=== PATIENT | male | born 1955 | race African-American/Black ===

== ENCOUNTER → 2019-10-04 | Day surgery (SDC) | payer MEDICARE, OTHER ==
--- NOTE | 2019-10-01 12:44 | Diagnostic Imaging Report ---
EXAMINATION: CHEST 2 VIEWS INDICATION: Pre-operative COMPARISON: None FINDINGS: LINES/TUBES:Right IJ central venous catheters terminate at the SVC and superior cavoatrial junction. LUNGS:The lungs are well-inflated. No focal consolidation or pulmonary edema. PLEURA:No pleural effusion or pneumothorax. MEDIASTINUM:The cardiomediastinal silhouette appears normal in size and shape. BONES/SOFT TISSUES:No acute osseous injury. ABDOMEN:No free air under the diaphragm. IMPRESSION: No focal pneumonia or pulmonary edema. Signed by: Lida Villavicencio MD on 10/01/2019 12:41 PM
[~2019-10-04] MED LIST: ACIDOPHILUS1 EAC1 PO; ATORVASTATIN CA20 MG PO; B&O 60MG R/S 60 MG SUPP PR ONE; CARVEDILOL12.5 MG PO; CEFDINIR300 MG PO; CEFTRIAXONE SOD 1 GM/NS 50 ML 50 ML IV ONE; ETOMIDATE 2 MG/ML 10 ML INJ IV ONE; FAMOTIDINE20 MG PO; FENTANYL CITRATE/PF 100MCG/2 ML INJ ONE; FERROUS SULFAT325 MG PO; FINASTERIDE1 MG PO; FLOMAX0.4 MG PO; HYDRALAZINE HCL25 MG PO; IOPAMIDOL 300MG/ML 50ML INFUS..BTL IV ONE; LIDOCAINE HCL 2% LOCAL INJ 5 ML SDV VIAL INJ ONE; MIDAZOLAM HCL 2 MG/2 ML VIAL ONE; NORVASC10 MG PO; ONDANSETRON HCL INJ 2MG/ML 2ML 2 MG/ML VIAL ONE; SEVOFLURANE INHAL SOLN 250 ML PEN BTL ONE
[2019-10-04 09:32] LABS: BASOPHILS % 0.3 % (0.0-1.0); EOSINOPHILS # (AUTO) 0.2 (0.0-0.4); EOSINOPHILS % 2.4 % (0.0-6.0); HEMATOCRIT 36.2 % (38.2-49.6); HEMOGLOBIN 11.4 g/dL (14.0-18.0); LYMPHOCYTES % 15.4 % (18.0-39.1); MEAN CORPUSCULAR HEMOGLOBIN 28.1 pg (28-32); MEAN CORPUSCULAR HGB CONC 31.5 g/dL (31-35); MEAN CORPUSCULAR VOLUME 89.2 fL (81-99); MONOCYTES # (AUTO) 0.6 (0.2-0.8); MONOCYTES % 8.1 % (4.4-11.3); NEUTROPHILS % 73.5 % (38.7-80.0); PLATELET COUNT 255 x10e3/uL (140-360); RED BLOOD COUNT 4.06 x10e6/uL (4.3-5.7); RED CELL DISTRIBUTION WIDTH 17.9 % (11.7-14.4)
[2019-10-04 10:27] LABS: ANION GAP 17.9 mmol/L (8-16); CALCIUM 9.2 mg/dL (8.4-10.2); CREATININE, SERUM 5.66 mg/dL (0.72-1.25); POTASSIUM 3.9 mmol/L (3.5-5.1)
[2019-10-04 17:05] VITALS: BP 149/87
--- NOTE | 2019-11-11 04:16 | Operative Report ---
DATE OF PROCEDURE: 10/04/2019 SURGEON: Aureliano Collier MD PREOPERATIVE DIAGNOSES: 1. Right hydronephrosis. 2. Left hydronephrosis. 3. Bilateral indwelling ureteral stents. POSTOPERATIVE DIAGNOSES: 1. Right hydronephrosis. 2. Left hydronephrosis. 3. Bilateral indwelling ureteral stents. OPERATIONS PERFORMED: 1. Cystourethroscopy with complicated removal of bilateral indwelling ureteral stents (separate procedure was performed for the diagnosis of stents done with separate scope). 2. Bilateral ureteroscopy (separate procedure was performed to evaluate the bilateral hydronephrosis). 3. Radiological services for supervision and interpretation of ureteroscopy. 4. Interpretation of retrograde ureteropyelography. ANESTHESIA: General. COMPLICATIONS: None. 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 The patient went into renal failure. He is now on hemodialysis. He had bilateral stents placed due to hydronephrosis and brought to the operating room to render him stent free. He is aware of the risks of bleeding, infection, injury to adjacent structures, need for additional procedures and elected to proceed. OPERATIVE PROCEDURE IN DETAIL: Informed consent was verified. Ovi Austin was properly identified, taken to the operating room, placed on the cystoscopy table in supine position. Anesthesia was uneventfully begun. The patient was then carefully gently repositioned in dorsal lithotomy position with all pressure points well padded. His genitalia were prepared and draped in usual sterile fashion. The cystoscope sheath with the visual obturator in place was atraumatically inserted into the patient's urethra, was guided unremarkable distal urethra through the normal sphincteric region, through the prostate bed, which was significant for obstructive BPH. We went into the patient's bladder. Panendoscopy revealed diffuse trabeculations as well as small diverticula throughout the entire surface of the bladder. No suspicious lesions were identified. The guidewire was then placed into the right ureter and guided alongside the stent up to the level of the patient's kidney. The stent was then grasped completely, removed and discarded. A semi-rigid ureteroscope was then placed alongside the guidewire into the distal ureter. The distal ureter was unremarkable. It was not obstructed, except there seemed to be narrowing at the region of the heavily trabeculated bladder. The ureter was dilated severely. Identical maneuver was performed on the left hand side. Interpretation of retrograde ureteropyelography contrast was instilled in a retrograde fashion by the semi-rigid ureteroscope. There was a rather dramatic bilateral hydroureteronephrosis and ureteral tortuosity. No obvious filling defects were identified. It seems as if unobstructed drainage was observed bilaterally fluoroscopically. We will try to leave the patient without stents and see how he does. There was suboptimal opacification of the upper collecting systems because they are so huge. It will require ongoing urological followup of this patient because he is at risk for recurrent obstruction as well as urinary tract infections. He may be a transplant candidate, but his lower urinary tract is quite diseased. Aureliano MD BRITTNEY Collier/MILAD /[id number]
== END | disposition home or self-care (01) ==
LOC: EDBD 09-13 13:30 → OR 08:56
PROVIDERS: ATTEND Urology
DX: N13.30 Unspecified hydronephrosis (principal); Z46.6 Encounter for fitting and adjustment of urinary device; N13.8 Other obstructive and reflux uropathy; N32.89 Other specified disorders of bladder; N32.3 Diverticulum of bladder; N20.0 Calculus of kidney; I12.0 Hypertensive chronic kidney disease with stage 5 chronic kidney disease or end stage renal disease; N18.6 End stage renal disease; N40.1 Benign prostatic hyperplasia with lower urinary tract symptoms; I49.3 Ventricular premature depolarization; E78.5 Hyperlipidemia, unspecified; K21.9 Gastro-esophageal reflux disease without esophagitis; K28.9 Gastrojejunal ulcer, unspecified as acute or chronic, without hemorrhage or perforation; Z01.810 Encounter for preprocedural cardiovascular examination; Z01.812 Encounter for preprocedural laboratory examination; Z01.818 Encounter for other preprocedural examination; Z11.59 Encounter for screening for other viral diseases; Z99.2 Dependence on renal dialysis; Z87.891 Personal history of nicotine dependence
CPT/HCPCS: 36415; 52351; 71046; 74420; 80048; 85025; 87635; 93005; C1769; J0696; J2001; J2250; J2405; J3010; Q9967; U0002